=== PATIENT | male | born 1945 | race Caucasian/White ===

== ENCOUNTER 2021-08-25 16:37 | Emergency (ER) | payer MEDICARE ==
[2021-08-25] MEDS ORDERED: HYDROcodone/Acetaminophen 5/325 mg Tablet ONE (17:10)
== END 2021-08-25 17:13 | disposition home or self-care (01) ==
LOC: BURERS 16:37
DX: M19.011 Primary osteoarthritis, right shoulder (principal); Z87.891 Personal history of nicotine dependence; Z86.73 Personal history of transient ischemic attack (TIA), and cerebral infarction without residual deficits; E78.00 Pure hypercholesterolemia, unspecified; Z79.82 Long term (current) use of aspirin; Z79.899 Other long term (current) drug therapy